=== PATIENT | female | born 1955 | race Caucasian/White ===

== ENCOUNTER → 2021-01-25 | Outpatient (CLI) | payer BC, MEDICARE ==
[2021-01-26 07:13] LABS: RHEUMATOID ARTHRITIS FACTOR <10.0 IU/mL (0.0-13.9)
== END ==
LOC: LAB 09:45
PROVIDERS: Nurse Practitioner Family
DX: D89.9 Disorder involving the immune mechanism, unspecified (principal); M25.50 Pain in unspecified joint; R76.8 Other specified abnormal immunological findings in serum; E55.9 Vitamin D deficiency, unspecified; M79.10 Myalgia, unspecified site
CPT/HCPCS: 36415; 82550; 82728; 83520; 85652; 86140; 86200; 86431

== ENCOUNTER → 2021-04-06 | Outpatient (CLI) | payer BC, MEDICARE | LOC: RAD 16:12 | DX: M54.50 Low back pain, unspecified (principal); G89.29 Other chronic pain; Z87.81 Personal history of (healed) traumatic fracture; M47.818 Spondylosis without myelopathy or radiculopathy, sacral and sacrococcygeal region; M47.816 Spondylosis without myelopathy or radiculopathy, lumbar region | CPT/HCPCS: 72100; 72202 ==